=== PATIENT | male | born 1940 | race Caucasian/White ===

== ENCOUNTER 2020-09-30 14:50 | Observation (INO) | payer MEDICARE, OTHER ==
[~2020-09-30] VITALS: Ht 183.6 cm; Wt 113.0 kg
[2020-09-30 15:21] VITALS: BP 162/107
--- NOTE | 2020-09-30 15:25 | NUR ---
ARRIVAL PATIENT ARRIVED TO ED4 AMBULATORY C/O OF ABDOMEN PAIN THAT STARTED TODAY, STATES HIS BOWELS DID MOVE TODAY, PAIN CONTINUED, DECIDED TO COME TO THE ED FOR EVAL, DOCTOR SHANELL NOTIFIED OF PATIENT'S ARRIVAL.
[2020-09-30] MEDS ORDERED: ZOFRAN IV STA (16:05)
[2020-09-30] MEDS ORDERED: MORPHINE SULFATE IV STA (16:05)
[2020-09-30] MEDS ORDERED: MORPHINE SULFATE ONE (16:08)
[2020-09-30] MEDS ORDERED: LACTATED RINGERS 1,000 ML ONE (16:08)
[2020-09-30] MEDS ORDERED: ZOFRAN ONE (16:08)
--- NOTE | 2020-09-30 16:10 | ER.PDOC ---
General Chief Complaint: Abdomen Pain Stated Complaint: ABD PAIN Time seen by MD: 16:07 Source: patient Exam Limitations: no limitations History of Present Illness Initial Comments Abdominal pain that started this morning with breakfast. Has steadily been getting worse. No Nausea or Vomiting. Admits to constipation. No diarrhea Timing/Duration: 4-6 hours Severity/Quality: severe Radiation: periumbilical Associated Symptoms: swelling/mass in abdomen Exacerbated by: movements, walking, deep breaths Relieved By: nothing Allergies: Coded Allergies: No Known Allergies (Unverified , 09/30/20) Home Meds Reported Medications Albuterol Sulfate (ALBUTEROL SULFATE) 0.63 Mg/3 Ml Vial.neb, 0.63 MG IH Q6 PRN for SHORTNESS OF BREATH, EA 09/30/20 Montelukast Sodium (SINGULAIR) 10 Mg Tablet, 1 TAB PO HS, #90 TAB 3 Refills 09/30/20 Cetirizine Hcl (ZYRTEC) 10 Mg Tablet, 10 MG PO PRN PRN for ALLERGIES, TAB 09/30/20 Cyclosporine (RESTASIS) 1 Each Droperette, 1 DROP OP BID, #60 VIAL 3 Refills 09/30/20 Fluticasone/Salmeterol (ADVAIR 250-50 DISKUS) 1 Each Disk.w.dev, 1 PUFF IH BID, #3 INHALER 3 Refills 09/30/20 Omeprazole (OMEPRAZOLE) 40 Mg Capsule.dr, 1 CAP PO DAILY, #90 CAP 3 Refills 09/30/20 Tiotropium [place] (SPIRIVA) 18 Mcg Cap.w.dev, 1 CAP IH DAILY, #30 CAP 3 Refills 09/30/20 Mu-Vits-Min Th/Lycopene/Lutein (CENTRUM SILVER TABLET) 1 Each Tablet, 1 EACH PO DAILY24, TAB 09/30/20 Aspirin (ASPIRIN) 81 Mg Tab.chew, 1 TAB PO DAILY, #90 TAB 3 Refills 09/30/20 Lisinopril (LISINOPRIL) 40 Mg Tablet, 1 TAB PO DAILY, #90 TAB 3 Refills 09/30/20 Hydrochlorothiazide (HYDROCHLOROTHIAZIDE) 25 Mg Tablet, 1 TAB PO DAILY, #90 TAB 3 Refills 09/30/20 Vital Signs First Vital Signs Date Time Temp Pulse Resp B/P (MAP) Pulse Ox O2 Delivery O2 Flow Rate FiO2 09/30/20 15:21 98.2 98 24 162/107 (125) 91 Room Air Last Vital Signs Date Time Temp Pulse Resp B/P (MAP) Pulse Ox O2 Delivery O2 Flow Rate FiO2 09/30/20 16:47 98.2 87 24 133/75 (94) 91 Room Air Past Medical History Medical History: COPD, hypertension Surgical History: other Social History Alcohol Use: none Drug Use: none Reviewed Nursing Reviewed: Vital Signs, Abn. Noted, Nursing Assessment Constitutional: no symptoms reported EENTM: no symptoms reported Respiratory: no symptoms reported Cardiovascular: no symptoms reported Gastrointestinal: abdomen distended, abdominal pain, constipated; denies diarrhea, denies nausea; poor appetite; denies vomiting Genitourinary: no symptoms reported Musculoskeletal: no symptoms reported Skin: no symptoms reported Psychiatric/Neurological: no symptoms reported Endocrine: no symptoms reported Hematologic/Lymphatic: no symptoms reported All Other Systems: Reviewed and Negative Physical Exam General Appearance: WD/WN, Moderate Distress (in pain) HEENT: PERRL/EOMI, Normal ENT Inspection, TMs Normal, Pharynx Normal Neck: Non-Tender, Full Range of Motion, Supple, Normal Inspection Respiratory: chest non-tender, lungs clear, normal breath sounds, no respiratory distress, no accessory muscle use Cardiovascular: Normal Peripheral Pulses, Regular Rate, Rhythm, No Edema, No Gallop, No JVD, No Murmur Gastrointestinal: Normal Bowel Sounds, Hypoactive bowel sounds, Distended, Guarding, Rebound, Tenderness (Generalized tenderness), Hernia (Umbilical hernia, tender, did not reduce with palpation.) Back: Normal Inspection, No CVA Tenderness, No Vertebral Tenderness Extremities: Normal Range of Motion, Non-Tender, Normal Inspection, No Pedal Edema, No Calf Tenderness, Normal Capillary Refill, Pelvis Stable Neurologic/Psychiatric: box sealing 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 (09/30/20 16:05) Urinalysis (09/30/20 16:05) Morphine Sulfate (Morphine Sulfate) (09/30/20 16:05) Ondansetron Hcl/Pf (Zofran) (09/30/20 16:05) Ringer's Solution,Lactated (Lactated Rin (09/30/20 16:30) Ringer's Solution,Lactated (Lactated Rin (09/30/20 16:08) Ondansetron Hcl/Pf (Zofran) (09/30/20 16:08) Morphine Sulfate (Morphine Sulfate) (09/30/20 16:08) Magnesium 2 Gm/Water 50ml (Magnesium Sul (09/30/20 17:30) Xr Chest 1v (09/30/20 17:24) Ipratropium/Albuterol Sulfate (Duo 0.5-3 (09/30/20 17:24) Arterial Blood Gas (09/30/20 17:26) Magnesium 2 Gm/Water 50ml (Magnesium Sul (09/30/20 17:41) Ipratropium/Albuterol Sulfate (Duo 0.5-3 (09/30/20 17:45) Thyroid Panel W Tsh(Ml) (09/30/20 17:49) Vital Signs Date Time Temp Pulse Resp B/P (MAP) Pulse Ox O2 Delivery O2 Flow Rate FiO2 09/30/20 16:47 98.2 87 24 133/75 (94) 91 Room Air 09/30/20 15:21 98.2 98 24 09/30/20 15:21 98.2 98 24 91 09/30/20 15:21 98.2 98 24 162/107 (125) 91 Room Air Administered Medications Medications (Trade) Dose Ordered Sig/Dio Route PRN Reason Start Time Stop Time Status Last Admin Dose Admin Magnesium Sulfate 50 ml @ 50 mls/hr OT ONCE IV 09/30/20 17:30 09/30/20 18:29 09/30/20 17:45 50 MLS/HR Morphine Sulfate (Morphine Sulfate) 4 mg STAT STAT IV 09/30/20 16:05 09/30/20 16:08 DC 09/30/20 16:14 4 MG Ondansetron HCl (Zofran) 4 mg OT STAT IV 09/30/20 16:05 09/30/20 16:08 DC 09/30/20 16:14 4 MG Laboratory Tests Test 09/30/20 16:05 09/30/20 16:20 09/30/20 17:20 White Blood Count 17.2 10^3/uL (4.5-11.0) H Red Blood Count 5.81 10^6/uL (4.50-5.90) Hemoglobin 17.7 g/dL (13.9-16.3) H Hematocrit 53.3 % (37.0-53.0) H Mean Corpuscular Volume 91.7 fL (78-100) Mean Corpuscular Hemoglobin 30.5 pg (26-34) Mean Corpuscular Hemoglobin Concent 33.2 g/dL (33-36.5) Red Cell Distribution Width 13.1 % (11.5-14.5) Platelet Count 283 10^3/uL (150-400) Mean Platelet Volume 9.9 fL (7.8-11.0) Neutrophils (%) (Auto) 86.1 % (41.0-85.0) H Lymphocytes (%) (Auto) 6.1 % (24.0-44.0) *L Monocytes (%) (Auto) 7.2 % (5.0-12.0) Neutrophils # (Auto) 14.8 10^3/uL (1.8-7.7) H Lymphocytes # (Auto) 1.04 10^3/uL1 (1.0-4.8) Monocytes # (Auto) 1.2 10^3/uL (0.3-0.8) H Absolute Immature Granulocyte (auto 0.04 10^3 u/L (0-2) Absolute Eosinophils (auto) 0.0 10^3/uL (0.0-0.2) Immature Granulocytes % 0.20 % (0.00-0.50) Eosinophils % 0.2 % (0.0-5.0) Basophils % 0.2 % (0.0-0.2) Basophils # 0.0 10^3/uL (0.0-0.1) Prothrombin Time 11.4 SEC (9.6-12.0) Prothrombin Time INR (Non-Therap) 1.1 Activated Partial Thromboplast Time 26.8 SEC (24.67-30.72) Urine Collection Type UNKNOWN Urine Color YELLOW Urine Appearance CLEAR Urine Bilirubin NEGATIVE (NEGATIVE) Urine Ketones TRACE (NEGATIVE) H Urine Specific [place] 1.025 (1.005-1.030) Urine pH 5.5 (4.5-8.0) Urine Protein NEGATIVE (NEGATIVE) Urine Urobilinogen 0.2 E.U./dL (0.2) Urine Nitrate NEGATIVE (NEGATIVE) Urine Leukocyte Esterase NEGATIVE (NEGATIVE) Urine Glucose (Auto)(UA) NEGATIVE (NEGATIVE) Urine Blood NEGATIVE (NEGATIVE) Sodium Level 135 mmol/L (132-145) Potassium Level 3.8 mmol/L (3.6-5.2) Chloride Level 98.0 mmol/L (96-109) Carbon Dioxide Level 27.9 mmol/L (20.0-32) Anion Gap 12.9 Blood Urea Nitrogen 27 mg/dL (7-18) H Creatinine 1.08 mg/dL (0.59-1.40) Estimated GFR () 79.8 (>/=60) Est GFR (CKD-EPI)(Non-Afr Chinese) 66.0 (>/=60) BUN/Creatinine Ratio 25.0 Glucose Level 112 mg/dL (70-110) H Calcium Level 9.3 mg/dL (8.4-10.5) Total Bilirubin 0.8 mg/dL (0.2-1.0) Aspartate Amino Transferase (AST) 21 U/L (0-35) Alanine Aminotransferase (ALT) 32 U/L (12-78) Alkaline Phosphatase 49 U/L (50-136) L Total Protein 7.4 g/dL (6.4-8.2) Albumin 4.0 g/dL (3.4-5.0) Globulin 3.4 Albumin/Globulin Ratio 1.176 Amylase Level 39 U/L (25-115) Lipase 72 U/L (114-286) L Thyroid Stimulating Hormone (TSH) 0.880 mIU/mL (0.358-3.740) Free Thyroxine 0.99 ng/dL (0.76-1.46) Thyroxine (T4) 8.2 ug/dL (4.5-12.0) Free Triiodothyronine (T3) Index 2.48 pg/mL (2.18-3.98) Differential Total Cells Counted 100 #CELLS Segmented Neutrophils 84 % (31-76) H Lymphocytes 8 % (25-36) L Monocytes 8 % (3-9) Differential Comment NORMAL Platelet Estimate ADEQUATE Platelet Morphology NORMAL Blood Morphology Comment NORMAL MORPHOLOGY Blood Gas Sample Site RT BRACIAL ARTERY Blood pH 7.412 (7.350-7.450) Blood Gas PCO2 37.8 mmHg (35.0-45.0) Blood Gas PO2 47.4 mmHg (80.0-100.0) L Blood Gas HCO3 23.5 mmol/L (22.0-26.0) Blood Gas Base Excess -0.7 mmol/L (-2.0-2.0) Moncho Test POSITIVE Arterial Blood Oxygen Saturation 82.6 % (94.0-97.00) L Deoxyhemoglobin 17.1 % (0.0-5.0) H Carboxyhemoglobin 1.8 % (0.0-3.9) Methemoglobin 0.2 % (0.00-5.0) Total Hemoglobin 17.4 % (12.0-17.8) Total Oxygen Concentration 19.7 % (13.5-17.5) H Blood Gas Temperature 37.0 FiO2 21 % (20-101) Total Carbon Dioxide 24.7 mmol/L (23-27) EKG/XRAY/CT/US XRAY: chest (scaring,) CT Comments: Diverticulosis, Umbilical Hernia, Renal Cysts. No acute diverticulitis ER DEPART Departure Time of Disposition: 18:22 Disposition: 09 ADMITTED INPATIENT Impression: Primary Impression: Diverticulosis Additional Impressions: Abdominal pain COPD (chronic obstructive pulmonary disease) Leukocytosis Constipation Condition: Stable Referrals: JONH WILLETT PA-C (PCP) PRIMARY CARE PROVIDER Duration or Time Spent with Pa: 60 Critical Care Note Total Time (mins): 30 Comments Hypoxia and respiratory distress after CT Scan. Patient responded to Non- rebreather, and breathing treatment. Oxygen saturation to 60-70% on Room Air. Patient now improving, on 3 liters Oxygen via NC. Problem Qualifiers Additional Impressions: Abdominal pain Abdominal location: periumbilical Qualified Codes: R10.33 - Periumbilical pain COPD (chronic obstructive pulmonary disease) COPD type: unspecified COPD Qualified Codes: J44.9 - Chronic obstructive pulmonary disease, unspecified Leukocytosis Leukocytosis type: unspecified Qualified Codes: D72.829 - Elevated white blood cell count, unspecified Constipation Constipation type: unspecified constipation type Qualified Codes: K59.00 - Constipation, unspecified SYMONE REECE DO Sep 30, 2020 16:10
[2020-09-30] MEDS: LACTATED RINGERS 1,000 ML IV SCH ×5 (16:14→20:30)
[2020-09-30 16:15] LABS: BASOPHIL % 0.2 % (0.0-0.2); EOSINOPHIL % 0.2 % (0.0-5.0); LYMPHOCYTES # 1.04 10^3/uL1 (1.0-4.8); LYMPHOCYTES % 6.1 % (24.0-44.0); MEAN CORP HGB 30.5 pg (26-34); MONOCYTES # 1.2 10^3/uL (0.3-0.8); MONOCYTES % 7.2 % (5.0-12.0); NEUTROPHIL # 14.8 10^3/uL (1.8-7.7); NEUTROPHILS % 86.1 % (41.0-85.0); PLATELET COUNT 283 10^3/uL (150-400); RED CELL DISTRIBUTION WIDTH 13.1 % (11.5-14.5)
[2020-09-30 16:18] LABS: BILIRUBIN,URINE NEGATIVE (NEGATIVE); UA COLOR YELLOW
[2020-09-30 16:19] LABS: UROBILINOGEN,URINE 0.2 E.U./dL (0.2)
[2020-09-30 16:33] LABS: CALCIUM 9.3 mg/dL (8.4-10.5); CARBON DIOXIDE 27.9 mmol/L (20.0-32)
[2020-09-30] MEDS ORDERED: CYCL1DRO OP (16:43)
[2020-09-30] MEDS ORDERED: MULT-678 PO (16:43)
[2020-09-30] MEDS ORDERED: OMEP40CA41 PO (16:43)
[2020-09-30] MEDS ORDERED: TIOT18CA IH (16:43)
[2020-09-30] MEDS ORDERED: ALBU0.63 IH (16:43)
[2020-09-30] MEDS ORDERED: HYDR25TA9 PO (16:43)
[2020-09-30] MEDS ORDERED: ASPI-667 PO (16:43)
[2020-09-30] MEDS ORDERED: CETI10TA77 PO (16:43)
[2020-09-30] MEDS ORDERED: LISI40TA10 PO (16:43)
[2020-09-30] MEDS ORDERED: FLUT1DIS3 IH (16:43)
[2020-09-30] MEDS ORDERED: MONT10TA6 PO (16:43)
[2020-09-30 16:47] VITALS: BP 133/75
--- NOTE | 2020-09-30 16:58 | NUR ---
CAT SCAN PATIENT TO CAT SCAN WITH JOANNE FROM RADIOLOGY.
[2020-09-30 17:01] LABS: LYMPHOCYTE 8 % (25-36); MONOCYTE 8 % (3-9); SEGMENTED NEUTROPHILS 84 % (31-76)
[2020-09-30 17:02] LABS: DIFFERENTIAL COMMENT NORMAL
--- NOTE | 2020-09-30 17:18 | DIREP ---
4PROCEDURE:CT ABDOMEN/PELVIS W/ CONTRAST COMPARISON:None. INDICATIONS:abdominal pain TECHNIQUE:Axial images were created through the abdomen and pelvis with non-ionic intravenous contrast material. No oral contrast was administered. Sagittal and coronal reconstructions were performed from source images. FINDINGS: LUNG BASES:Emphysema, peripheral scarring fibrosis, greater toward the right side LIVER:Normal. No significant liver lesions are identified. BILIARY:Normal. No visible dilatation or calcification. PANCREAS:Normal. No lesion, fluid collection, ductal dilatation, or atrophy. SPLEEN:Normal. No enlargement or focal lesion. ADRENALS:Normal. No mass or enlargement. URINARY TRACT:No hydronephrosis. Symmetric and homogeneous enhancement. Multiple bilateral cysts, largest involving the right-sided 2.6 cm, largest on the left measuring 5.4 cm. AORTA/VASCULAR:There are aortic atherosclerotic calcifications present. No aneurysm. RETROPERITONEUM:Normal. No mass or adenopathy. BOWEL/MESENTERY:The appendix is visualized and appears normal. There is no intestinal obstruction, free fluid, free air or mesenteric inflammatory changes. Moderate colonic diverticulosis ABDOMINAL WALL:Small fat containing periumbilical hernia PELVIC ORGANS:Normal. No visible mass. Pelvic organs appropriate for patient age. BONES:Normal for age. No bony lesion or acute fracture. OTHER:Negative. CONCLUSION:No acute disease. Numerous sigmoid diverticuli without CT evidence of acute diverticulitis. Dictated by: Prabhjot Tang MD on 09/30/2020 at 05:12 PM
[2020-09-30] MEDS ORDERED: DUO 0.5-3(2.5) MG/3 ML IH STA (17:24)
[2020-09-30] MEDS ORDERED: MAGNESIUM SULFATE 50 ML IV ONE ×2 (17:30→17:41)
[2020-09-30 17:38] LABS: ABG PCO2 37.8 mmHg (35.0-45.0); ABG PH 7.412 (7.350-7.450); BE(B) -0.7 mmol/L (-2.0-2.0); HCO3act 23.5 mmol/L (22.0-26.0); pO2 47.4 mmHg (80.0-100.0)
--- NOTE | 2020-09-30 17:44 | DIREP ---
PROCEDURE:CHEST 1 VIEW COMPARISON:[facility], CT, CT ABD/PELVIS W/ CONTRAST, 09/30/2020, 04:43 PM. INDICATIONS:dyspnea FINDINGS: LUNGS/PLEURA:No definite acute process. Regions of what likely represent chronic scar, right mid and right lung base. Minimal scar toward the left apex. No pneumothorax. No definite effusion. VASCULATURE:Normal. Unremarkable pulmonary vasculature. CARDIAC:Normal. No cardiac silhouette abnormality or cardiomegaly. MEDIASTINUM:Ectasia of the thoracic aorta BONES:Normal. No fracture or visible bony lesion. OTHER:Negative. CONCLUSION:No definite acute process. Regions of scar, predominantly on the right. Dictated by: Prabhjot Tang MD on 09/30/2020 at 05:41 PM
[2020-09-30] MEDS ORDERED: DUO 0.5-3(2.5) MG/3 ML IH ONE (17:45)
--- NOTE | 2020-09-30 18:28 | PCM.EKG ---
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
--- NOTE | 2020-09-30 18:43 | NUR ---
[facility] SPOKE WITH SOL. SOL REPORTED THEY WOULD CALL WITH ROOM #.
[2020-09-30] MEDS ORDERED: ZOSYN 3.375 GM 3.375 GM in NS 100ML 100 ML IV SCH (19:00)
--- NOTE | 2020-09-30 19:12 | NUR ---
ADMIT PT TRANSPORTED TO MED SURG ROOM 330 VIA WHEELCHAIR AND ON OXYGEN 2 L. PT A & O X 3, RR REGULAR, UNLABORED. ABLE TO MAKE NEEDS KNOWN. DAUGHTER INSISTED ON ESCORTING WITH PATIENT.
--- NOTE | 2020-09-30 19:16 | PCM.HP ---
History of Present Illness Reason for Visit: (1) Constipation ICD Code: K59.00 - Constipation, unspecified SNOMED: 44350781, 479826189 Hx of Present Illness Mr. Padgett is a very pleasant 80-year-old gentleman who presents with a 1 day history of abdominal distention coupled with lower quadrant bilateral abdominal pain. He denies diarrhea nausea or vomiting malaise fevers or fatigue, but does report that he has had regular formed stools daily for as far as he can remember back. He reports slightly worse shortness of breath today, particularly when attempting to lay flat for the CT scan, but otherwise reports only the abdominal pain. Prior to the onset of pain, at approximately 7 PM yesterday he had been in his usual state of excellent health. Review of Systems Constitutional: No: Fever, Chills, Sweats, Weakness, Malaise Eyes: No: Conjunctivae inflammation, Eyelid inflammation ENT: No: Nose discharge, Mouth pain, Mouth swelling Respiratory: Shortness of breath, SOB with excertion; No: Cough, Wheezing Cardiovascular: No: Chest Pain, Orthopnea, Paroxysmal Noc. Dyspnea Gastrointestinal: Abdominal Pain; No: Nausea, Vomiting, Diarrhea, Constipation Genitourinary: No Dysuria, No Frequency, No Incontinence Musculoskeletal: No: neck pain, shoulder pain Skin: No: Lesions, Jaundice, Bruising Neurological: No: Weakness, Numbness, Change in speech, Confusion, Seizures Allergies: Coded Allergies: No Known Allergies (Unverified , 09/30/20) Scheduled Aspirin (Aspirin), 1 TAB PO DAILY, (Reported) Cyclosporine (Restasis), 1 DROP OP BID, (Reported) Fluticasone/Salmeterol (Advair 250-50 Diskus), 1 PUFF IH BID, (Reported) Hydrochlorothiazide (Hydrochlorothiazide), 1 TAB PO DAILY, (Reported) Lisinopril (Lisinopril), 1 TAB PO DAILY, (Reported) Montelukast Sodium (Singulair), 1 TAB PO HS, (Reported) Mu-Vits-Min Th/Lycopene/Lutein (Centrum Silver Tablet), 1 EACH PO DAILY24, (Reported) Omeprazole (Omeprazole), 1 CAP PO DAILY, (Reported) Tiotropium [place] (Spiriva), 1 CAP IH DAILY, (Reported) Scheduled PRN Albuterol Sulfate (Albuterol Sulfate), 0.63 MG IH Q6 PRN for SHORTNESS OF BREATH, (Reported) Cetirizine Hcl (Zyrtec), 10 MG PO PRN PRN for ALLERGIES, (Reported) VTE VTE Risk Score VTE Risk: Score 0-1 = Low Risk (Aggressive mobilization; early ambulation; no VTE prophylaxis required) Score 2: Moderate Risk (Intermittent/Pneumatic Compression Device OR Lovenox/Heparin/Coumadin) Score 3-4: High Risk (Intermittent/Pneumatic Compression Device AND Lovenox/Heparin/Coumadin) Score > or =5: Highest Risk (Intermittent/Pneumatic Compression Device AND Lovenox/Heparin/Coumadin) Exam Vital Signs Vital Signs Date Time Temp Pulse Resp B/P (MAP) Pulse Ox O2 Delivery O2 Flow Rate FiO2 09/30/20 16:47 98.2 87 24 133/75 (94) 91 Room Air General Appearance: Alert, Oriented X3, Cooperative HEENT: Atraumatic, PERRLA, EOMI Respiratory: Clear to auscultation, Normal air movement Cardiovascular: Regular rate, Normal S1, Normal S2 Abdominal: Normal bowel sounds, Other (mildly distended, bilateral LQ TTP, diffusely tympanitic to percussion) Extremities: No clubbing, No cyanosis, No edema Skin: No rash, No breakdown, No lesions Neuro: Normal speech, Strength at 5/5 X4 ext Psych/Mental Status: Mental status NL, Mood NL Assessment/Plan Assessment/Plan Problems: (1) HTN (hypertension) Status: Chronic Assessment & Plan: Normotensive on home regimen, no plan to alter ICD Code: I10 - Essential (primary) hypertension SNOMED: 56708936 (2) Diverticulosis Status: Acute Assessment & Plan: CT only showed diverticulosis, however patient's symptoms indicate either this versus gastroenteritis, and in either event he will not be harmed by administration of antibiotics, thus starting Cipro Flagyl while gently hydrating the patient ICD Code: K57.90 - Diverticulosis of intestine, part unspecified, without perforation or abscess without bleeding SNOMED: 769266512 (3) Constipation Status: Acute Assessment & Plan: Gassy distention, no real history of constipation as his last formed bowel movement was yesterday; however based upon exam he appears to be somewhat distended; will give 1 enema in order to promote flatus ICD Code: K59.00 - Constipation, unspecified SNOMED: 65536620, 232244017 (4) COPD (chronic obstructive pulmonary disease) Status: Acute Assessment & Plan: Duo nebs and budesonide scheduled while inpatient; Slightly increased oxygen requirement to 3 L (vs 2L at home ) which I believe is secondary to his abdominal distention pressing on his diaphragm ICD Code: J44.9 - Chronic obstructive pulmonary disease, unspecified SNOMED: 15494786 Patient History: Patient reports no known family medical history. Problem Qualifiers (1) Constipation: Constipation type: unspecified constipation type Qualified Codes: K59.00 - Constipation, unspecified (2) COPD (chronic obstructive pulmonary disease): COPD type: unspecified COPD Qualified Codes: J44.9 - Chronic obstructive pulmonary disease, unspecified ELISA DOSHI MD Sep 30, 2020 19:16
--- NOTE | 2020-09-30 19:29 | NUR ---
REPORT REPORTED PATEITN CARE OFF TO [facility], MED SURG.
[2020-09-30] MEDS ORDERED: CIPRO 200 ML IV SCH (19:30)
[2020-09-30] MEDS ORDERED: DUO 0.5-3(2.5) MG/3 ML IH SCH (19:30)
[2020-09-30 19:50] VITALS: BP 119/72
[2020-09-30] MEDS: DUO 0.5-3(2.5) MG/3 ML IH SCH (21:00)
[2020-09-30] MEDS: PULMICORT IH SCH (21:00)
[2020-09-30] MEDS: D5W-1/2NS 1000ML 1,000 ML IV SCH (21:02)
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
--- NOTE | 2020-09-30 22:21 | NUR ---
SS ENEMA PT VOIDED CONTENTS OF ENEMA VERY SMALL SHENG OF STOOL NOTED ALONG WITH PASSING GAS
[2020-09-30] MEDS: FLAGYL 500MG/ 100 ML NS 100 ML IV SCH (22:51)
[2020-10-01 00:17] VITALS: BP 111/70
[2020-10-01] MEDS: TYLENOL PO PRN ×2 (00:23→14:00)
[2020-10-01 03:49] VITALS: BP 103/66
[2020-10-01] MEDS: DUO 0.5-3(2.5) MG/3 ML IH SCH ×2 (03:50→08:16)
[2020-10-01 05:06] LABS: BASOPHIL % 0.3 % (0.0-0.2); EOSINOPHIL # 0.1 10^3/uL (0.0-0.2); EOSINOPHIL % 0.4 % (0.0-5.0); LYMPHOCYTES # 2.26 10^3/uL1 (1.0-4.8); MEAN CORP HGB 31.9 pg (26-34); MONOCYTES # 1.1 10^3/uL (0.3-0.8); MONOCYTES % 8.9 % (5.0-12.0); NEUTROPHIL # 8.5 10^3/uL (1.8-7.7); NEUTROPHILS % 71.4 % (41.0-85.0); PLATELET COUNT 258 10^3/uL (150-400); RED CELL DISTRIBUTION WIDTH 13.5 % (11.5-14.5)
[2020-10-01] MEDS: D5W-1/2NS 1000ML 1,000 ML IV SCH ×2 (05:30→13:38)
[2020-10-01 05:31] LABS: CALCIUM 8.7 mg/dL (8.4-10.5)
[2020-10-01 06:04] LABS: EOSINOPHIL 1 % (1-4); LYMPHOCYTE 13 % (25-36); MONOCYTE 9 % (3-9); SEGMENTED NEUTROPHILS 77 % (31-76)
[2020-10-01] MEDS: FLAGYL 500MG/ 100 ML NS 100 ML IV SCH ×2 (06:08→13:53)
[2020-10-01] MEDS ORDERED: MAGNESIUM CITRATE PO STA (07:05)
[2020-10-01] MEDS: PULMICORT IH SCH (08:16)
[2020-10-01 08:38] VITALS: BP 121/77
[2020-10-01] MEDS ORDERED: CIPRO 200 ML IV SCH (09:00)
[2020-10-01] MEDS ORDERED: DUO 0.5-3(2.5) MG/3 ML IH PRN (09:30)
[2020-10-01 15:08] VITALS: BP 111/73
[2020-10-01] MEDS ORDERED: CIPR500T86 PO (18:29)
[2020-10-01] MEDS ORDERED: METR-67 PO (18:29)
--- NOTE | 2020-10-01 18:31 | PRM.DC ---
Discharge Summary Date of Discharge: October 01, 2020 Time of Request to Discharge: 18:00 Reason for Visit: Acute abdominal pain and swelling Hospital Course Mr. Zach Mckeon is a very pleasant 80-year-old gentleman who presented with severe abdominal distention as well as shortness of breath beyond his usual due to underlying COPD. Upon x-ray imaging, the patient was found to have a large amount of gas, but no clear obstruction, as a consequence was admitted and started on broad-spectrum antibiotics directed at gastritis, specifically Cipro and Flagyl. After administration of 2 enemas and magnesium citrate, the patient had several large episodes of flatus followed by large bowel movement, with immediate relief of his symptoms including shortness of breath. He was thereafter discharged home to complete a 7-day course of oral Cipro/Flagyl, and will follow up with his PCP as needed. Patient History: Patient reports no known family medical history. General: Alert, Oriented X3, Cooperative HEENT: PERRLA, EOMI, Mucous membr. moist/pink Neck: Supple, No JVD, No thyromegaly Lungs: Clear to auscultation, Normal air movement Heart: Regular rate, Normal S1, Normal S2 Abdomen: Normal bowel sounds, Soft, No tenderness Extremities: No clubbing, No cyanosis, No edema Skin: No rashes, No breakdown, No significant lesion Neuro: Normal gait, Normal speech, Strength at 5/5 X4 ext Psych/Mental Status: Mental status NL, Mood NL Scheduled Aspirin (Aspirin), 1 TAB PO DAILY, (Reported) Ciprofloxacin Hcl (Cipro), 1 TAB PO BID Cyclosporine (Restasis), 1 DROP OP BID, (Reported) Fluticasone/Salmeterol (Advair 250-50 Diskus), 1 PUFF IH BID, (Reported) Hydrochlorothiazide (Hydrochlorothiazide), 1 TAB PO DAILY, (Reported) Lisinopril (Lisinopril), 1 TAB PO DAILY, (Reported) Metronidazole (Metronidazole), 1 TAB PO TID Montelukast Sodium (Singulair), 1 TAB PO HS, (Reported) Mu-Vits-Min Th/Lycopene/Lutein (Centrum Silver Tablet), 1 EACH PO DAILY24, (Reported) Omeprazole (Omeprazole), 1 CAP PO DAILY, (Reported) Tiotropium [place] (Spiriva), 1 CAP IH DAILY, (Reported) Scheduled PRN Albuterol Sulfate (Albuterol Sulfate), 0.63 MG IH Q6 PRN for SHORTNESS OF BREATH, (Reported) Cetirizine Hcl (Zyrtec), 10 MG PO PRN PRN for ALLERGIES, (Reported) Sepsis Evaluation @ Discharge 10/01/20 08:54 Course Sepsis Screening Results: Posi: NEGATIVE Sepsis Qualifier/Stage: NO DEFINITE RISK Duration or Total Time Spent w: 60 Vitals & review Data Vital Sign - Last 24 Hours 09/30/20 09/30/20 09/30/20 09/30/20 19:50 20:24 21:35 21:36 Temp 97.8 Pulse 99 89 89 Resp 20 18 18 B/P (MAP) 119/72 (88) Pulse Ox 90 93 93 O2 Delivery Nasal Canula Nasal Cannula Nasal Cannula O2 Flow Rate 2.00 2.50 09/30/20 10/01/20 10/01/20 10/01/20 21:37 00:17 03:49 03:50 Temp 97.6 98.2 Pulse 90 84 74 73 Resp 18 20 18 18 B/P (MAP) 111/70 (84) 103/66 (78) Pulse Ox 93 93 91 93 O2 Delivery Nasal Canula Nasal Canula O2 Flow Rate 3.00 3.00 10/01/20 10/01/20 10/01/20 10/01/20 03:50 08:17 08:17 08:38 Temp 98.4 Pulse 75 78 78 80 Resp 18 22 22 16 B/P (MAP) 121/77 (92) Pulse Ox 94 93 93 93 O2 Delivery Nasal Cannula O2 Flow Rate 3.00 10/01/20 10/01/20 10/01/20 08:59 12:00 15:08 Pulse 76 Resp 17 B/P (MAP) 111/73 (86) Pulse Ox 96 O2 Delivery Nasal Cannula Nasal Cannula O2 Flow Rate 2.00 2.00 Intake and Output 10/01/20 07:00 Intake Total 300 ml Output Total 1100 ml Balance -800 ml Laboratory Tests Test 09/30/20 16:05 09/30/20 16:20 09/30/20 17:20 10/01/20 04:28 White Blood Count 17.2 10^3/uL 11.9 10^3/uL Red Blood Count 5.81 10^6/uL 5.33 10^6/uL Hemoglobin 17.7 g/dL 17.0 g/dL Hematocrit 53.3 % 49.7 % Mean Corpuscular Volume 91.7 fL 93.2 fL Mean Corpuscular Hemoglobin 30.5 pg 31.9 pg Mean Corpuscular Hemoglobin Concent 33.2 g/dL 34.2 g/dL Red Cell Distribution Width 13.1 % 13.5 % Platelet Count 283 10^3/uL 258 10^3/uL Mean Platelet Volume 9.9 fL 10.0 fL Neutrophils (%) (Auto) 86.1 % 71.4 % Lymphocytes (%) (Auto) 6.1 % 19.0 % Monocytes (%) (Auto) 7.2 % 8.9 % Neutrophils # (Auto) 14.8 10^3/uL 8.5 10^3/uL Lymphocytes # (Auto) 1.04 10^3/uL1 2.26 10^3/uL1 Monocytes # (Auto) 1.2 10^3/uL 1.1 10^3/uL Absolute Immature Granulocyte (auto 0.04 10^3 u/L 0.03 10^3 u/L Absolute Eosinophils (auto) 0.0 10^3/uL 0.1 10^3/uL Immature Granulocytes % 0.20 % 0.30 % Eosinophils % 0.2 % 0.4 % Basophils % 0.2 % 0.3 % Basophils # 0.0 10^3/uL 0.0 10^3/uL Prothrombin Time 11.4 SEC Prothrombin Time INR (Non-Therap) 1.1 Activated Partial Thromboplast Time 26.8 SEC Urine Collection Type UNKNOWN Urine Color YELLOW Urine Appearance CLEAR Urine Bilirubin NEGATIVE Urine Ketones TRACE Urine Specific [place] 1.025 Urine pH 5.5 Urine Protein NEGATIVE Urine Urobilinogen 0.2 E.U./dL Urine Nitrate NEGATIVE Urine Leukocyte Esterase NEGATIVE Urine Glucose (Auto)(UA) NEGATIVE Urine Blood NEGATIVE Sodium Level 135 mmol/L 134 mmol/L Potassium Level 3.8 mmol/L 3.7 mmol/L Chloride Level 98.0 mmol/L 99.0 mmol/L Carbon Dioxide Level 27.9 mmol/L 25.0 mmol/L Anion Gap 12.9 13.7 Blood Urea Nitrogen 27 mg/dL 17 mg/dL Creatinine 1.08 mg/dL 1.04 mg/dL Estimated GFR () 79.8 83.4 Est GFR (CKD-EPI)(Non-Afr [place]) 66.0 68.9 BUN/Creatinine Ratio 25.0 16.0 Glucose Level 112 mg/dL 130 mg/dL Calcium Level 9.3 mg/dL 8.7 mg/dL Total Bilirubin 0.8 mg/dL 1.2 mg/dL Aspartate Amino Transf (AST/SGOT) 21 U/L 15 U/L Alanine Aminotransferase (ALT/SGPT) 32 U/L 26 U/L Alkaline Phosphatase 49 U/L 46 U/L Total Creatine Kinase 107 U/L Creatine Kinase MB 1.9 ng/mL Troponin I < 0.02 ng/mL Pro-B-Type Natriuretic Peptide 47 pg/mL Total Protein 7.4 g/dL 6.9 g/dL Albumin 4.0 g/dL 3.5 g/dL Globulin 3.4 3.4 Albumin/Globulin Ratio 1.176 1.029 Amylase Level 39 U/L Lipase 72 U/L Thyroid Stimulating Hormone (TSH) 0.880 mIU/mL Free Thyroxine 0.99 ng/dL Thyroxine (T4) 8.2 ug/dL Free Triiodothyronine (T3) Index 2.48 pg/mL Differential Total Cells Counted 100 #CELLS Segmented Neutrophils 84 % Lymphocytes 8 % Monocytes 8 % Differential Comment NORMAL Platelet Estimate ADEQUATE Platelet Morphology NORMAL Blood Morphology Comment NORMAL MORPHOLOGY Blood Gas Sample Site RT BRACIAL ARTERY Blood Gas pH 7.412 Blood Gas PCO2 37.8 mmHg Blood Gas PO2 47.4 mmHg Blood Gas HCO3 23.5 mmol/L Blood Gas Base Excess -0.7 mmol/L Moncho Test POSITIVE Arterial Blood Oxygen Saturation 82.6 % Deoxyhemoglobin 17.1 % Carboxyhemoglobin 1.8 % Methemoglobin 0.2 % Total Hemoglobin 17.4 % Total Oxygen Concentration 19.7 % Blood Gas Temperature 37.0 FiO2 21 % Total Carbon Dioxide 24.7 mmol/L Test 10/01/20 05:39 Segmented Neutrophils 77 % Lymphocytes 13 % Monocytes 9 % Absolute Eosinophils (Manual) 1 % Platelet Estimate ADEQUATE Platelet Morphology NORMAL Current Medications Medications (Trade) Dose Ordered Sig/Dio PRN Reason Start Time Stop Time Status Last Admin Acetaminophen (Tylenol) 650 mg Q6HR PRN PAIN 1 - 3 10/01/20 00:00 10/07/20 21:00 10/01/20 14:00 Albuterol/ Ipratropium (Duo 0.5-3(2.5) Mg/3 ml) 3 ml RTQ6 PRN SHORTNESS OF BREATH 10/01/20 09:30 10/05/20 21:00 Budesonide (Pulmicort) 0.5 mg RTBID 09/30/20 21:00 10/30/20 20:59 10/01/20 08:16 Metronidazole 100 ml @ 100 mls/hr Q8HR 09/30/20 22:00 10/30/20 21:59 10/01/20 13:53 LEVEL 1 SEPSIS INFECTION CRITE: ABX Therapy, Abdominal Pain LEVEL 2-SIRS (LIST ALL THAT AP: HR>90/min, WBC>[id number] O2 Sat by Pulse Oximetry: 96 Oxygen Flow Rate: 2.00 Plan Problems: (1) Constipation Status: Acute ICD Code: K59.00 - Constipation, unspecified SNOMED: 32301901, [id number] Assessment & Plan: Symptoms completely resolved after large BM (2) Diverticulosis Status: Acute ICD Code: K57.90 - Diverticulosis of intestine, part unspecified, without perforation or abscess without bleeding SNOMED: 260352224 Assessment & Plan: will plan for 7 days of cipro/flagyl Problem Qualifiers (1) Constipation: Constipation type: unspecified constipation type Qualified Codes: K59.00 - Constipation, unspecified ELISA DOSHI MD October 01, 2020 18:31
[2020-10-01 19:12] VITALS: BP 132/82
--- NOTE | 2020-10-01 19:16 | NUR ---
DC PT AMBULATED TO PERSONAL VEHICLE WITH NO ACUTE DISTRESS TEACHING AND SCRIPTS GIVEN
== END 2020-10-01 19:16 | disposition home or self-care (01) ==
LOC: ER 14:50 → UNDOADMOB 18:56 → INTOOBSV 18:56 → MS 18:56 → UNDODISOB 10-01 19:16
PROVIDERS: ADMIT Surgery; ATTEND Surgery
DX: K57.90 Diverticulosis of intestine, part unspecified, without perforation or abscess without bleeding (principal); K59.00 Constipation, unspecified; I10 Essential (primary) hypertension; D72.829 Elevated white blood cell count, unspecified; J44.9 Chronic obstructive pulmonary disease, unspecified; Z79.82 Long term (current) use of aspirin; Z79.899 Other long term (current) drug therapy
CPT/HCPCS: 36415 ×2; 36600; 71045; 74177; 80053 ×2; 81003; 82150; 82550; 82553; 82803; 83690; 83880; 84439; 84443; 84484; 85025 ×2; 85610; 85730; 93005; 94640 ×2; 96365; 96366 ×2; 96368; 96375; 96376; 99291; G0378 ×3; J0744 ×2; J2270; J2405; J2543; J3475; J3490 ×3; J7120; J7627 ×2; Q9965; 84436